=== PATIENT | female | born 1985 | race Caucasian/White ===

== ENCOUNTER 2016-11-21 12:35 | Emergency (ER) | payer OTHER ==
[~2016-11-21 12:35] MED LIST: ALBUTEROL17 GM INH; AMOXICILLIN PO; AMOXIL875 MG PO; ATIVAN PO; BACITRACIN15 GM TP; BACTRIM DS TABL1 TA1 PO; BACTROBAN15 GM TOP; BENZONATATE; CIPRO PO; CLARITIN10 M2 PO; CLEOCIN HCL300 M1 PO; DECONGESTANT PO; DEPO SHOT; DEPO-PROVER150 MG/M1 IM; DIFLUCAN PO; EFFEXOR PO; EFFEXOR XR150 MG; EFFEXOR75 MG PO; FLEXERIL PO; FLEXERIL10 MG PO; FLINTSTONES T100 MCG PO; FLONASE 0.05% N16 G1; HYDROCODONE/APA1 T16 PO; IBUPROFEN800 MG PO; KEFLEX PO; LORTAB 5/500 TA1 TA1 PO; MACROBID 100 M100 MG PO; MAGIC MOUTHWASH PO; NAPROSYN500 MG PO; NORCO1 TAB 10/3 PO; PAXIL PO; PAXIL30 MG PO; PERCOCET PO; PHENERGAN PO; PHENERGAN25 M1 PO; PHENERGAN25 MG PO; PREDNISONE5 M1 PO; PRENATAL MULTIV1 TA1; PRENATAL1 TA1 PO; PYRIDIUM PO; RONDEC-DM ORAL30 ML PO; RONDEC-DM SYRU120 ML PO; SUDAFED PO; SUDAFED30 M1 PO; TRAMADOL HCL50 M1 PO; TYLOX 5/500 CAP1 CAP PO; TYLOX1 CAP 5/50 PO; VICODIN 5/1 TAB 5/50 PO; VICODIN 5/500 T1 TAB PO; VOLTAREN75 MG PO; ZOFRAN ODT4 MG PO; ZOFRAN PO; ZOLOFT PO; [UNRECOGNIZED DRUG - OTHER] PO
[2017-01-01] MEDS ORDERED: DIAZEPAM (13:05)
== END 2016-11-21 13:16 | disposition home or self-care (01) ==
LOC: SED 12:35
DX: S39.012A Strain of muscle, fascia and tendon of lower back, initial encounter (principal); S33.5XXA Sprain of ligaments of lumbar spine, initial encounter; F32.9 Major depressive disorder, single episode, unspecified; F17.210 Nicotine dependence, cigarettes, uncomplicated; M41.9 Scoliosis, unspecified; X58.XXXA Exposure to other specified factors, initial encounter; Y92.009 Unspecified place in unspecified non-institutional (private) residence as the place of occurrence of the external cause
CPT/HCPCS: 99283

== ENCOUNTER 2016-11-26 17:10 | Emergency (ER) | payer OTHER ==
[2016-11-26 15:32] LABS: INFLUENZA A NEG (NEG); INFLUENZA B NEG (NEG)
[2017-01-01] MEDS ORDERED: DIAZEPAM (13:05)
== END 2016-11-26 17:50 | disposition home or self-care (01) ==
LOC: SED 17:10
PROVIDERS: Physician Assistant
DX: J02.0 Streptococcal pharyngitis (principal); R11.2 Nausea with vomiting, unspecified; F32.9 Major depressive disorder, single episode, unspecified; F17.210 Nicotine dependence, cigarettes, uncomplicated; Z79.899 Other long term (current) drug therapy
CPT/HCPCS: 87804; 87880; 99283

== ENCOUNTER 2017-01-01 13:10 | Emergency (ER) | payer OTHER ==
--- NOTE | ~2017-01-01 | CR63 ---
[facility] A Service of [facility] RADIOLOGY TEXT RESULTS PATIENT: RICARDA HULL LOCATION: SED : [birth year] UNIT #: [id number] AGE: [address]: Gisselle Chowdhury APRN SEX: F ORDER DR: [id number] [place] [id number] E MR#: [id number] Acc #: [id number] NAME: RICARDA HULL : 1985 SEX: F STUDY DATE/TIME: 01/01/2017 13:23 UNIT: SED ROOM: STUDY DESCRIPTION: CR Chest 2 View Attending Physician: Gisselle Chowdhury A.P.R.N. Ordering Physician: Gisselle Chowdhury A.P.R.N. Primary Care Physician: Rosalia White Aprn MEDICAL IMAGING REPORT This report is preliminary unless electronic signature is present. EXAM 2-view chest HISTORY Cough x1 week. COMPARISON 08/21/2015 FINDINGS PA and lateral examination of the chest upright shows a good expansion of the parenchyma with a normal distribution of the pulmonary vascularity. There is no indication of congestion, effusion, infiltrate, tumor, or nodular density. The pleural reflections and diaphragmatic contours are normal. The cardiac silhouette and mediastinal anatomy is within normal limits. IMPRESSION Normal chest. Dictated by... Maritza Cui M.D. THIS IS AN ELECTRONICALLY VERIFIED REPORT Maritza Cui M.D. at 01/02/2017 7:33 AM ANITA/billy TD: 01/01/2017 14:09 JOB #: [id number] MEDICAL IMAGING REPORT [facility] A Service of [facility] RADIOLOGY TEXT RESULTS PATIENT: RICARDA HULL LOCATION: SED : [birth year] UNIT #: [id number] AGE: [address]: Gisselle Chowdhury APRN SEX: F ORDER DR: Page 1 of 1
[~2017-01-01 13:10] MED LIST changes: +DIAZEPAM
== END 2017-01-01 14:53 | disposition home or self-care (01) ==
LOC: SED 13:10
DX: J20.9 Acute bronchitis, unspecified (principal); F32.9 Major depressive disorder, single episode, unspecified; F17.210 Nicotine dependence, cigarettes, uncomplicated; Z87.442 Personal history of urinary calculi; Z98.890 Other specified postprocedural states; Z79.899 Other long term (current) drug therapy
CPT/HCPCS: 71020; 94640; 99283; 99284

== ENCOUNTER 2017-05-01 11:20 | Emergency (ER) | payer OTHER ==
--- NOTE | ~2017-05-01 | CR72 ---
[facility] A Service [facility] RADIOLOGY TEXT RESULTS PATIENT: RICARDA HULL LOCATION: SED : [birth year] UNIT #: [id number] AGE: [address]: NIGEL FAIR SEX: F ORDER DR: [id number] [place] [id number] E MR#: [id number] Acc #: [id number] NAME: RICARDA HULL : 1985 SEX: F STUDY DATE/TIME: 05/01/2017 12:15 UNIT: SED ROOM: STUDY DESCRIPTION: CR Chest Single View Portable Attending Physician: Nigel Fair Aprn Ordering Physician: Nigel Fair Aprn Primary Care Physician: Evan Rodriges M.D. MEDICAL IMAGING REPORT This report is preliminary unless electronic signature is present. EXAM Chest portable 05/01/2017 1215 hours HISTORY A 31-year-old woman with cough and congestion for 2-3 days. COMPARISON 01/01/2017 FINDINGS Portable upright chest demonstrates slightly low lung volumes. The cardiac, mediastinal and hilar contours are normal. There is bibasilar vascular crowding and hazy density likely atelectasis. The upper lungs are clear and there are no effusions. IMPRESSION Slightly low lung volumes with basilar vascular crowding and minimal atelectasis at the bases. The upper lungs are clear, and there are no effusions. Dictated by... Dania Rod M.D. THIS IS AN ELECTRONICALLY VERIFIED REPORT Dania Rod M.D. at 05/01/2017 2:32 PM GRETCHEN/marta TD: 05/01/2017 13:42 JOB #: [id number] MEDICAL IMAGING REPORT [facility] A Service [facility] RADIOLOGY TEXT RESULTS PATIENT: RICARDA HULL LOCATION: SED : [birth year] UNIT #: [id number] AGE: [address]: NIGEL FAIR SEX: F ORDER DR: Page 1 of 1
[2017-05-01] MEDS ORDERED: LORAZEPAM1 MG PO (11:30)
== END 2017-05-01 14:17 | disposition home or self-care (01) ==
LOC: SED 11:20
DX: J06.9 Acute upper respiratory infection, unspecified (principal); F17.210 Nicotine dependence, cigarettes, uncomplicated; Z79.899 Other long term (current) drug therapy
CPT/HCPCS: 71010; 94640; 99283